=== PATIENT | female | born 1970 | race Caucasian/White ===

== ENCOUNTER → 2017-07-31 | Outpatient (CLI) | payer BC ==
[~2017-07-31] MED LIST: ATOR40TA24 PO; CEP500 PO; FERR325T3 PO; IBU800 PO; NORG1TAB97 PO; TRA50 PO
== END ==
LOC: LAB 13:50
PROVIDERS: ATTEND Nurse Practitioner Family
DX: R53.83 Other fatigue (principal); E55.9 Vitamin D deficiency, unspecified
CPT/HCPCS: 36415; 82306

== ENCOUNTER → 2017-10-06 | Outpatient (CLI) | payer BC ==
[2017-10-06 08:46] LABS: LDL CHOLESTEROL 87 mg/dl
== END ==
LOC: LAB 08:08
PROVIDERS: ATTEND Nurse Practitioner Family
DX: E11.9 Type 2 diabetes mellitus without complications (principal); E78.5 Hyperlipidemia, unspecified
CPT/HCPCS: 36415; 82040; 82247; 82310; 82374; 82435; 82465; 82565; 82947; 83036; 83718; 84075; 84132; 84155; 84295; 84450; 84460; 84478; 84520

== ENCOUNTER → 2018-02-12 | Outpatient (CLI) | payer BC ==
[2018-02-12 09:55] LABS: LDL CHOLESTEROL 87 mg/dl
== END ==
LOC: LAB 09:02
PROVIDERS: ATTEND Nurse Practitioner Family
DX: E78.5 Hyperlipidemia, unspecified (principal); E55.9 Vitamin D deficiency, unspecified; E11.9 Type 2 diabetes mellitus without complications
CPT/HCPCS: 36415; 82040; 82247; 82306; 82310; 82374; 82435; 82465; 82565; 82607; 82947; 83036; 83718; 84075; 84132; 84155; 84295; 84450; 84460; 84478; 84520

== ENCOUNTER → 2018-07-07 | Outpatient (CLI) | payer BC ==
--- NOTE | 2018-07-07 14:39 | RADIOLOGY IMAGING REPORT ---
FACILITY: [facility] - [place], [place] PATIENT NAME: Dulce Cervantes : 1970 MR: [id number] V: [id number] EXAM DATE: ORDERING PHYSICIAN: MCKAY BARNES TECHNOLOGIST: Location: [facility] [place] Patient: Dulce Cervantes : 1970 Visit/Account:[id number] Date of Sevice: 07/07/2018 ABDOMEN/PELVIS W/O CONTRAST HISTORY: Left-sided abdomen pain, tenderness and back, hematuria TECHNIQUE: Axial images acquired through the abdomen/pelvis. Coronal and sagittal reformatting also performed. No IV contrast administered.Dose Lowering Technique One of the following dose optimization techniques was utilized in the performance of this exam: Autom ated exposure control; adjustment of the mA and/or kV according to the patient's size; or use of an i terative reconstruction technique. Specific details can be referenced in the facility's radiology C T exam operational policy. COMPARISON: September 10, 2012 FINDINGS: Visualized lung bases: Negative. Hepatobiliary: There is diffuse hepatic steatosis. Spleen: Negative. Adrenals: Negative. Pancreas: Negative. Kidneys ureters and bladder: No demonstration of urolithiasis, hydronephrosis or hydroureter Genitalia: Hysterectomy, there is a 1.9 cm right adnexal cyst GI: No evidence of bowel wall thickening or bowel obstruction. The appendix is visualized and does not appear inflamed Vessels/spaces/nodes: Negative. Bones/soft tissues: Mild spondylotic changes of the thoracolumbar spine Additional findings: None pertinent. IMPRESSION: No demonstration of urolithiasis, hydronephrosis or hydroureter Diffuse hepatic steatosis 1.9 cm right adnexal cyst Results were called to MCKAY BARNES at 07/07/2018 2:34 PM. Report Dictated By: Brittney Munoz MD at 07/07/2018 2:09 PM Report E-Signed By: Brittney Munoz MD at 07/07/2018 2:34 PM WSN:[email or web address]
== END ==
LOC: CT 13:05
PROVIDERS: ATTEND Nurse Practitioner Family
DX: K76.0 Fatty (change of) liver, not elsewhere classified (principal); R10.814 Left lower quadrant abdominal tenderness; R31.9 Hematuria, unspecified; N85.8 Other specified noninflammatory disorders of uterus
CPT/HCPCS: 74176

== ENCOUNTER → 2018-09-07 | Outpatient (CLI) | payer BC | LOC: LAB 07:53 | PROVIDERS: ATTEND Nurse Practitioner Family | DX: E11.9 Type 2 diabetes mellitus without complications (principal) | CPT/HCPCS: 36415; 83036 ==

== ENCOUNTER → 2018-10-12 | Outpatient (CLI) | payer BC ==
--- NOTE | 2018-10-12 12:55 | RADIOLOGY IMAGING REPORT ---
FACILITY: [facility] PATIENT NAME: Dulce Cervantes : 1970 MR: [id number] V: [id number] EXAM DATE: ORDERING PHYSICIAN: MCKAY BARNES TECHNOLOGIST: [place] [facility] [place]: Dulce Cervantes : 1970 Visit/Account:[id number] Date of Sevice: 10/12/2018 TRANSVAGINAL NON-OB HISTORY: Prior CT June 2018 demonstrates a 1.9 cm right adnexal cyst with right cramping TECHNIQUE: Transvaginal ultrasound pelvis. COMPARISON: CT on pelvis July 07, 2018 FINDINGS: Uterus: Hysterectomy Cervix: There appear to be a small cervical remnant. Ovaries: Right - 2.9 x 2.1 x 2 cm is 1.2 cm cyst in the right ovary Left - not visualized, possibly surgically absent although patient is uncertain Blood flow is documented in the right ovary by duplex Doppler ultrasound. Adnexa: Grossly unremarkable. Free pelvic fluid: None. IMPRESSION: Postsurgical changes from hysterectomy and possible left nephrectomy. The left ovary was not visuali zed There is a 1.2 cm cyst in the right ovary Report Dictated By: Brittney Munoz MD at 10/12/2018 12:47 PM Report E-Signed By: Brittney Munoz MD at 10/12/2018 12:51 PM WSN:[email or web address]
== END ==
LOC: US 01:49
PROVIDERS: ATTEND Nurse Practitioner Family
DX: N83.201 Unspecified ovarian cyst, right side (principal); Z90.711 Acquired absence of uterus with remaining cervical stump
CPT/HCPCS: 76830

== ENCOUNTER → 2018-10-19 | Outpatient (CLI) | payer BC ==
[~2018-10-19] MED LIST changes: +CYAN100071 SL
--- NOTE | 2018-10-19 15:09 | RADIOLOGY IMAGING REPORT ---
FACILITY: [facility] - [place] PATIENT NAME: SANDIP VILLANUEVA : [id number] MR: [id number] V: [id number] EXAM DATE: [id number] ORDERING PHYSICIAN: MCKAY BARNES TECHNOLOGIST: Radha Cowan PROCEDURE:BILATERAL DIGITAL SCREENING MAMMOGRAM WITH CAD ASSISTED INTERPRETATION & 3D TOMOSYNTHESIS COMPARISON:03/29/15, 09/24/12 INDICATIONS:SCREENING TECHNIQUE: Routine CC & MLO 3D tomographic images were obtained of both breasts. CAD was used. BREAST DENSITY: The breast tissue is almost entirely fatty replaced. FINDINGS: Small benign lymph node upper outer quadrant of the Right breast is stable. No new or enlarging masses or suspicious microcalcifications in either breast. DIAGNOSTIC CATEGORY 1--NEGATIVE. RECOMMENDATIONS: ROUTINE MAMMOGRAM AND CLINICAL EVALUATION. IMPRESSION: BIRADS 1: Negative. Recommend patient resume screening mammography in 1 year. Dictated by: Anselmo Swift M.D. on 10/19/2018 at 12:15 Transcribed by: BIGG on 10/19/2018 at 13:40 Approved by: Anselmo Swift M.D. on 10/19/2018 at 15:08 [facility]
== END ==
LOC: MAMO 00:42
PROVIDERS: ATTEND Nurse Practitioner Family
DX: Z12.31 Encounter for screening mammogram for malignant neoplasm of breast (principal)
CPT/HCPCS: 77063; 77067

== ENCOUNTER → 2018-10-26 | Outpatient (CLI) | payer BC ==
[2018-10-26 09:24] LABS: LDL CHOLESTEROL 95 mg/dl
== END ==
LOC: LAB 08:45
PROVIDERS: ATTEND Nurse Practitioner Family
DX: Z00.00 Encounter for general adult medical examination without abnormal findings (principal); E78.5 Hyperlipidemia, unspecified; E55.9 Vitamin D deficiency, unspecified; E53.8 Deficiency of other specified B group vitamins
CPT/HCPCS: 36415; 82040; 82247; 82306; 82310; 82374; 82435; 82465; 82565; 82607; 82947; 83718; 84075; 84132; 84155; 84295; 84450; 84460; 84478; 84520

== ENCOUNTER → 2018-10-28 | Outpatient (CLI) | payer BC ==
[~2018-10-28] MED LIST changes: +GADOBENATE 529MG/1ML 15ML VIAL IVP ONE
--- NOTE | 2018-10-28 11:48 | RADIOLOGY IMAGING REPORT ---
FACILITY: [facility] PATIENT NAME: Dulce Cervantes : 1970 MR: [id number] V: [id number] EXAM DATE: ORDERING PHYSICIAN: BRANDAN MOMIN TECHNOLOGIST: Location: [facility] - [place] Patient: Dulce Cervantes : 1970 Visit/Account:[id number] Date of Sevice: 10/28/2018 EXAMINATION: MRI brain without IV contrast MRI brain with IV contrast, detailed IACs HISTORY: Asymmetrical sensorineural hearing loss. COMPARISON: None. TECHNIQUE: Multi-planar, multi-sequence brain MRI was performed before and after IV gadolinium. Thin section imaging was performed in the axial and coronal planes centered on the IACs. CONTRAST: 15 mL of IV MultiHance gadolinium. FINDINGS: IAC detailed study: Brain stem: Negative. Cerebellopontine angles: Negative. IACs/CN VII and VIII: There are no filling defects in either internal auditory canal. Inner ear: Negative. Middle ear: Negative. Mastoids/petrous apices: Negative. Rest of brain: Brain volume: Normal. Sagittal midline structures: Sagittal midline structures are normally formed. There is a partly empty sella, typically a normal variant. Ventricles: Normal. Acute ischemic changes: No diffusion restriction present to suggest acute ischemia. Hemorrhage: None. Masses/edema: None. Enhancement: There is no abnormal intracranial or posterior fossa enhancement. Vilchis-white: Negative. White matter: There are scattered small T2/FLAIR hyperintense lesions in the deep white matter bilat erally, mostly subcortical in the frontal lobes. Vessels: Normal. Extra-axial: Normal. Calvarium/scalp: Negative. Skull base: Negative. Visualized sinuses/orbits: Negative. Visualized upper neck: Negative. IMPRESSION: 1. No posterior fossa mass lesion or abnormal enhancement. 2. No acute infarct, hemorrhage or intracranial mass lesion. 3. [id number]-[id number] nonspecific white matter disease is abnormal for age. Differential considerations include the sequela of chronic migraine headaches, previous inflammation or trauma. A demyelinating disease such as multiple sclerosis could be considered in the correct clinical setting. Report Dictated By: Zhanna Oconnell MD at 10/28/2018 11:35 AM Report E-Signed By: Zhanna Oconnell MD at 10/28/2018 11:42 AM WSN:[email or web address]
== END ==
LOC: MRI 01:13
PROVIDERS: ATTEND Otolaryngology
DX: R90.82 White matter disease, unspecified (principal)
CPT/HCPCS: 70553; A9577

== ENCOUNTER → 2018-11-18 | Outpatient (CLI) | payer BC ==
[~2018-11-18] MED LIST changes: -GADOBENATE 529MG/1ML 15ML VIAL IVP ONE
== END ==
LOC: LAB 07:55
PROVIDERS: ATTEND Nurse Practitioner Family
DX: E11.9 Type 2 diabetes mellitus without complications (principal)
CPT/HCPCS: 36415; 83036

== ENCOUNTER → 2019-02-25 | Outpatient (CLI) | payer BC ==
[~2019-02-25] MED LIST changes: +METR45CR10 TP
== END ==
LOC: LAB 07:33
PROVIDERS: ATTEND Nurse Practitioner Family
DX: E11.40 Type 2 diabetes mellitus with diabetic neuropathy, unspecified (principal); E55.9 Vitamin D deficiency, unspecified
CPT/HCPCS: 36415; 82306; 82607; 83036

== ENCOUNTER → 2019-03-01 | Outpatient (CLI) | payer BC ==
[2019-03-01 08:27] LABS: PLATELET COUNT, AUTOMATED 291 K/uL (150-450)
== END ==
LOC: LAB 07:27
PROVIDERS: ATTEND Nurse Practitioner Family
DX: R19.7 Diarrhea, unspecified (principal); N95.1 Menopausal and female climacteric states; E78.5 Hyperlipidemia, unspecified; M79.605 Pain in left leg
CPT/HCPCS: 36415; 82040; 82247; 82274; 82310; 82374; 82435; 82565; 82947; 83001; 84075; 84132; 84155; 84295; 84443; 84450; 84460; 84520; 85025; 87045; 87088; 87177

== ENCOUNTER → 2019-03-04 | Outpatient (CLI) | payer BC ==
--- NOTE | 2019-03-04 15:58 | RADIOLOGY IMAGING REPORT ---
FACILITY: [facility] PATIENT NAME: Dulce Cervantes : 1970 MR: [id number] V: [id number] EXAM DATE: ORDERING PHYSICIAN: MCKAY BARNES TECHNOLOGIST: Location: [facility] - [place] Patient: Dulce Cervantes : 1970 Visit/Account:[id number] Date of Sevice: 03/04/2019 Exam type: US VENOUS LOWER EXT LT History: Left thigh pain Comparison: None. Findings: The left lower extremity veins were imaged including the left common femoral vein, greater saphenous vein, superficial femoral vein, popliteal vein, posterior tibial vein, peroneal vein and anterior tib ial veins revealing no evidence of intraluminal thrombi the veins were compressible and demonstrated augmentation. IMPRESSION: 1. No sonographic evidence of DVT involving the left lower extremity veins Report Dictated By: Brittney Munoz MD at 03/04/2019 3:48 PM Report E-Signed By: Brittney Munoz MD at 03/04/2019 3:49 PM WSN:[email or web address]
== END ==
LOC: US 00:46
PROVIDERS: ATTEND Nurse Practitioner Family
DX: M79.605 Pain in left leg (principal)